=== PATIENT | female | born 1970 | race Caucasian/White ===

== ENCOUNTER 2024-05-31 00:44 | Emergency (ER) | payer OTHER, SELFPAY ==
[2024-05-31 00:47] VITALS: BP 140/67; BMI 39.0
[2024-05-31 01:00] VITALS: BP 115/62
[2024-05-31 01:17] LABS: % Basophils 0.7 % (0-2); % Immature Granulocytes 0.2 % (0-0.5); % Lymphocytes 38.4 % (20.5-51.1); % Neutrophils 48.7 % (42.2-75.2); Absolute Basophils 0.1 10^3/uL (0-0.2); Absolute Eosinophils 0.3 10^3/uL (0-0.7); Absolute Lymphocytes 3.2 10^3/uL (1.2-3.4); Absolute Monocytes 0.7 10^3/uL (0.1-0.6); Hematocrit 36.3 % (37.0-47.0); Hemoglobin 12.6 g/dL (12.0-16.0); Mean Corp Hgb Conc. 34.7 g/dL (33.0-37.0); Mean Corpuscular Hgb 30.8 pg (27.0-31.0); Mean Corpuscular Volume 88.8 fL (81.0-99.0); Mean Platelet Volume 10.2 fL (7.4-10.4); Nucleated Red Blood Cells % 0 %; Platelet Count 219 10^3/uL (130-400); Red Blood Cell Count 4.09 10^6/uL (4.20-5.40); Red Cell Dist. Width 13.4 % (11.5-14.5); White Blood Cell Count 8.2 10^3/uL (4.8-10.8)
[2024-05-31 01:24] LABS: ALT (SGPT) 166 U/L (0-35); AST (SGOT) 153 U/L (14-36); Albumin 4.6 g/dl (3.5-5.0); Alkaline Phosphatase 138 U/L (38-126); Blood Urea Nitrogen 13 mg/dl (7-17); Calcium 9.4 mg/dl (8.4-10.2); Carbon Dioxide 24 mmol/L (22-30); Chloride 106 mmol/L (98-107); Estimated Creatinine Clearance 109 ml/min; Glucose 124 mg/dl (70-99); Potassium 3.8 mmol/L (3.5-5.1); Sodium 143 mmol/L (135-145); Total Bilirubin 0.6 mg/dl (0.2-1.3); Total Protein 7.2 g/dl (6.3-8.2); eGFR > 60.00
[2024-05-31 01:36] LABS: Troponin I < 0.012 ng/ml
[2024-05-31 02:00] VITALS: BP 126/55
--- NOTE | 2024-05-31 02:11 | ED.GENMED ---
History of Present Illness
<GISELLE Chavez - Last Filed: 05/31/24 06:21>
General
Chief Complaint: Chest Pain
Source: patient
Exam Limitations: none
Time Seen by Provider: 05/31/24 02:02
History of Present Illness
History of Present Illness:
Patient is a 54 yo F w/ PMH of seizures and fatty liver disease presents to the ER w/ chest pain x 4 hours. State she felt off all day but developed chest pain/tightness when trying to sleep. States it came on gradually and rates 7/10. Pt given
nitroglycerin by EMS which brought pain down to 2/10. Pain worse w/ inspiration. Notes similar symptoms last week but went away on own. Denies radiation of pain but reports numbness of R arm. States R arm feels like pins/needles. Denies any recent
new activtes. Notes family hx of heart disease. Denies drinking, smoking, drugs.
Review of Systems
<GISELLE Chavez - Last Filed: 05/31/24 06:21>
Review of Systems
Constitutional: Denies fatigue
Respiratory: Denies cough or trouble breathing
Cardiac: Reports chest pain; Denies palpitations or syncope
ABD/GI: Denies abdominal pain, nausea, vomiting, diarrhea or constipated
: Denies dysuria, frequency or urgency
Musculoskeletal: Reports edema; Denies joint pain, joint swelling, muscle pain or muscle stiffness
Neurological: Reports numbness; Denies dizzy, headache or weakness
Phy Exam
<GISELLE Chavez - Last Filed: 05/31/24 06:21>
General Physical Exam
General Presentation: well appearing
General age: appears stated age
General Mental: alert
Cardiovascular Exam
Cardiovascular Exam: regular rate/rhythm, no gallop, no murmur and no carotid bruit
Pulmonary Exam
Pulmonary Exam: lungs clear, no respiratory distress, no rales, chest non tender, no crackles, no rhonchi and no wheezing
Neurological Exam
Neurological Exam: alert, oriented x3, no motor deficits and speech normal
Musculoskeletal Exam
Musculoskeletal Exam: edema (tracing BL pitting edema )
Skin Exam
Skin Exam: normal color, warm/dry and no rash
Scores
<GISELLE Chavez - Last Filed: 05/31/24 06:21>
Heart Score for Chest Pain Patients
Heart Score for Chest Pain Patients: 2
Heart Score Risk: 2.5% MACE over next 6 weeks
<Juani Eckert DO - Last Filed: 05/31/24 06:01>
Heart Score for Chest Pain Patients
STEMI patient?: No
History: Slightly or Non-Suspicious
ECG: Normal
Age: >45 - <65 years
Risk Factors: 1 or 2 Risk Factors
Troponin: </= Normal Limit
Heart Score for Chest Pain Patients: 2
Heart Score Risk: 2.5% MACE over next 6 weeks
Course
<GISELLE Chavez - Last Filed: 05/31/24 06:21>
Orders/Labs/Results
Orders:
Orders
05/31/24 00:46
Electrocardiogram (*1) Urgent
Reason for Study: Chest Pain
Cardiac Monitoring- Treatment ONCE
EKG- Treatment ONCE
IV Insert/Care/Rem.- Treatment PRN
Pulse Ox/spot Check [RESP] Urgent
Quantity: 1
Special Instructions: ON ROOM AIR
05/31/24 00:58
Complete Blood Count/With Diff Urgent
Comprehensive Metabolic Panel Urgent
Troponin I Urgent
05/31/24 02:29
Mag Hydrox/Al Hydrox/Simeth [Maalox] 30 ml Phenobarb/Hyoscy/Atropine/Scop [] 10 ml Viscous Lidocaine 2% [Xylocaine Viscous Cup] 10 ml PO NOW
05/31/24 02:34
D-Dimer Urgent
Troponin I Urgent
05/31/24 03:06
Mag Hydrox/Al Hydrox/Simeth [Maalox] 30 ml .ROUTE .STK-MED ONE
Phenobarb/Hyoscy/Atropine/Scop [] 10 ml .ROUTE .STK-MED ONE
05/31/24 03:07
Viscous Lidocaine 2% [Xylocaine Viscous Cup] 15 ml .ROUTE .STK-MED ONE
05/31/24 04:41
CR Chest - 2 Views Urgent
Comment:
Reason For Exam: acute SSCP
05/31/24 04:43
Pantoprazole [Protonix IV] 40 mg IV NOW STA
Abnormal Lab Results
05/31/24
00:58
RBC 4.09 L 10^6/uL
(4.20-5.40)
Hct 36.3 L %
(37.0-47.0)
Absolute Monos (auto) 0.7 H 10^3/uL
(0.1-0.6)
Glucose 124 H mg/dl
(70-99)
AST 153 H U/L
(14-36)
ALT 166 H U/L
(0-35)
Alkaline Phosphatase 138 H U/L
(38-126)
05/31/24 00:58
05/31/24 00:58
Vital Signs
Initial and Last Documented VS:
Initial Vital Signs
Temp Pulse Resp BP Pulse Ox
98 F 65 18 140/67 97
05/31/24 00:47 05/31/24 00:47 05/31/24 00:47 05/31/24 00:47 05/31/24 00:47
Last Documented Vital Signs
Temp Pulse Resp BP Pulse Ox
98 F 72 16 114/76 99
05/31/24 00:47 05/31/24 06:16 05/31/24 06:16 05/31/24 06:16 05/31/24 06:16
<Juani Eckert, DO - Last Filed: 05/31/24 06:01>
Orders/Labs/Results
Orders:
Orders
05/31/24 00:46
Electrocardiogram (*1) Urgent
Reason for Study: Chest Pain
Cardiac Monitoring- Treatment ONCE
EKG- Treatment ONCE
IV Insert/Care/Rem.- Treatment PRN
Pulse Ox/spot Check [RESP] Urgent
Quantity: 1
Special Instructions: ON ROOM AIR
05/31/24 00:58
Complete Blood Count/With Diff Urgent
Comprehensive Metabolic Panel Urgent
Troponin I Urgent
05/31/24 02:29
Mag Hydrox/Al Hydrox/Simeth [Maalox] 30 ml Phenobarb/Hyoscy/Atropine/Scop [] 10 ml Viscous Lidocaine 2% [Xylocaine Viscous Cup] 10 ml PO NOW
05/31/24 02:34
D-Dimer Urgent
Troponin I Urgent
05/31/24 03:06
Mag Hydrox/Al Hydrox/Simeth [Maalox] 30 ml .ROUTE .STK-MED ONE
Phenobarb/Hyoscy/Atropine/Scop [] 10 ml .ROUTE .STK-MED ONE
05/31/24 03:07
Viscous Lidocaine 2% [Xylocaine Viscous Cup] 15 ml .ROUTE .STK-MED ONE
05/31/24 04:41
CR Chest - 2 Views Urgent
Comment:
Reason For Exam: acute SSCP
05/31/24 04:43
Pantoprazole [Protonix IV] 40 mg IV NOW STA
Abnormal Lab Results
05/31/24
00:58
RBC 4.09 L 10^6/uL
(4.20-5.40)
Hct 36.3 L %
(37.0-47.0)
Absolute Monos (auto) 0.7 H 10^3/uL
(0.1-0.6)
Glucose 124 H mg/dl
(70-99)
AST 153 H U/L
(14-36)
ALT 166 H U/L
(0-35)
Alkaline Phosphatase 138 H U/L
(38-126)
05/31/24 00:58
05/31/24 00:58
Vital Signs
Initial and Last Documented VS:
Initial Vital Signs
Temp Pulse Resp BP Pulse Ox
98 F 65 18 140/67 97
05/31/24 00:47 05/31/24 00:47 05/31/24 00:47 05/31/24 00:47 05/31/24 00:47
Last Documented Vital Signs
Temp Pulse Resp BP Pulse Ox
98 F 72 16 114/76 99
05/31/24 00:47 05/31/24 06:16 05/31/24 06:16 05/31/24 06:16 05/31/24 06:16
<GISELLE Chavez - Last Filed: 05/31/24 06:21>
*Critical Care Note
Total Time (30-74mins, 75-104mins- exclusive of procedures): Not Applicable
<Juani Eckert DO - Last Filed: 05/31/24 06:01>
*Radiology
Radiology exam reviewed: preliminary read by ED provider (Chest x-ray is unremarkable)
*Pulse Oximetry
Patient hypoxic: no
*EKG
Interpreted by ED Provider?: Yes
Interpretation: normal
Comparison EKG: no comparison EKG present
Rate: normal
Rhythm: sinus
[place]: normal axis
Interval: normal interval
QRS Pattern: normal QRS
Ischemia: no ischemia
*First Crusher Interpretation
Rate: normal
Interpretation: normal
Rhythm: sinus
ED Attending Note
<GISELLE Chavez - Last Filed: 05/31/24 06:21>
-
Portions of this chart may have been created with voice recognition software.� Occasional wrong word or��sound alike� substitutions may have occurred due to the inherent limitations of voice recognition software.
<Juani Eckert DO - Last Filed: 05/31/24 06:01>
ED Attending Note
Patient seen and examined by attending physician: Yes
I performed the substantive portion of visit, reviewed & personally made and approve the management plan that is documented in note by myself or JENNIFER.: Yes
ED Attending Note:
This is a 54-year-old woman with history of isolated seizure, chronically maintained on Keppra. History of fatty liver who presents with complaints of substernal chest pain, pressure that has been intermittent throughout the day today but worse
after lying down tonight approximately 3 to 4 hours ago. She then developed some tingling in her right arm thus prompted her call to 911. According to ED nurse EMS reported unremarkable prehospital EKG. She was given 324 mg chewable aspirin
prehospital as well as 1 sublingual nitroglycerin. She reports moderate improvement in pain upon arrival but has not completely resolved.
She also admits to similar sporadic chest discomfort 1 week ago that then seemed worse with lying down. No other associated symptoms but pain does seem worse with deep breath. She denies shortness of breath, no cough. No abdominal pain, no nausea
or vomiting.
Lifelong non-smoker. No recent lengthy travel.
She does have family history of CAD in her father who suffered an MA at age 42.
GENERAL: Obese 54-year-old woman appears her stated age, awake and alert, pleasant, appears in no acute distress.
EYE: anicteric
NECK: Supple, nontender, no meningismus, no significant adenopathy.
ENT: oral mucosa is moist. No rhinorrhea.
CARDIAC: Regular rate and rhythm. no murmur. No palpable chest wall tenderness.
LUNGS: Clear breath sounds bilaterally, no acute respiratory distress, no wheezes/rales/rhonchi
ABDOMEN: Rotund, soft, nondistended, without focal tenderness, no r/g, no cvat. normoactive BS.
NEUROLOGICAL: Alert and oriented x3, no focal neuro deficits.
SKIN: Warm and dry, normal color, skin intact. No rash.
MUSCULOSKELETAL: No C/C/E. peripheral pulses are full and equal b/l. No palpable tenderness.
PSYCH: Normal and appropriate interaction.
Concern for ACS, GERD, pleurisy, pneumonia, PE. No history of hypertension, pain has been intermittent throughout the day, no back pain no tearing sensation, dissection is unlikely.
Labs are remarkable for elevated LFTs and mildly elevated alkaline phosphatase with normal bilirubin. Abdomen is soft without appreciable tenderness. Patient has known fatty liver disease. With nontender abdomen, biliary colic is unlikely.
Troponin is negative and EKG is unremarkable.
Will plan to repeat troponin and will check D-dimer.
Will trial a GI cocktail.
05/31/2024 0443 AM
Patient feeling improved after GI cocktail, improved with sitting upright.
Repeat troponin remains negative. D-dimer is normal as well.
Will check chest x-ray.
Will give an IV dose of Protonix for what I suspect is GERD.
05/31/2024 0555 AM
Chest x-ray is unremarkable. Clear lung suarez. Normal mediastinum.
As above, I suspect GERD and will add a short course of Protonix.
Recommend bland diet, avoiding caffeine, spicy or fried foods, red sauce, alcohol.
Due to strong family history of CAD will refer to cardiology as well.
Return precautions discussed.
Discharge Plan
Departure
Patient Disposition: Home (Routine Discharge)
Date of Disposition: 05/31/24
Time of Disposition: 05:59
Patient with high blood pressure during this ER visit?: No
Condition: Good
Discharge Problem:
Nonspecific chest pain, GERD without esophagitis
Instructions: Acid reflux and GERD in adults, Chest Pain DCA Follow Up
Prescriptions:
New
pantoprazole [Protonix] 40 mg tablet,delayed release (DR/EC)
40 mg PO DAILY Qty: 30 0RF
No Action
levetiracetam 500 mg Tablet
500 mg PO DAILY
Referrals:
Ana Maria Diggs MD [Family Provider] - Call in 1-3 days for appt
Interventions
Interventions:
*Risk Screen - Suicide Last Done: 05/31/24 00:47
*General Assessment Last Done: 05/31/24 00:47
*Neglect/Abuse Screening Last Done: 05/31/24 00:47
ED- Fall Risk Assessment Last Done: 05/31/24 00:56
*ED COVID-19 Vaccine History Last Done: 05/31/24 00:47
*Nursing Disposition Last Done: 05/31/24 06:16
ED- Cardiac Assessment Last Done: 05/31/24 00:56
Discharge Date and Time
Print Language: ARABIC
[2024-05-31 03:00] VITALS: BP 125/62
[2024-05-31] MEDS: MAALOX 50 PO (03:08)
[2024-05-31 03:34] LABS: D-Dimer 0.29 ug/mlFEU (0.00-0.50)
[2024-05-31 03:46] LABS: Troponin I < 0.012 ng/ml
[2024-05-31 04:00] VITALS: BP 134/63
[2024-05-31] MEDS: PROTONIX IV 40 MG IV (04:56)
[2024-05-31 06:16] VITALS: BP 114/76
== END 2024-05-31 06:31 | disposition home or self-care (01) ==
LOC: EMR 00:44
PROVIDERS: EMERGENCY PHYSICIAN Emergency Medicine; FAMILY PHYSICIAN Family Medicine
DX: K21.9 Gastro-esophageal reflux disease without esophagitis (principal); R07.89 Other chest pain
CPT/HCPCS: 99285; 96374; 71046; 80053; 84484; 85025; 85379; 93005